=== PATIENT | male | born 1995 | race Caucasian/White ===

== ENCOUNTER 2017-01-25 14:10 | Emergency (ER) | payer SELFPAY ==
[~2017-01-25 14:10] MED LIST: MOTRIN800 MG PO; TYLENOL325 MG PO
[2017-01-25] MEDS ORDERED: PROAIR HFA8.5 GM INH (16:28)
== END 2017-01-25 16:30 ==
LOC: EDMED 14:10
DX: J20.9 Acute bronchitis, unspecified (principal); F17.210 Nicotine dependence, cigarettes, uncomplicated